=== PATIENT | male | born 1950 | race Caucasian/White ===

== ENCOUNTER 2019-10-08 16:15 | Emergency (ER) | payer MEDICARE, OTHER ==
[2019-10-08] MEDS ORDERED: ONDANSETRON 4 MG/2 ML VIAL IVP STA (17:04)
[2019-10-08] MEDS ORDERED: KETOROLAC 30 MG/ML VIAL IVP STA (17:04)
[2019-10-08] MEDS ORDERED: HYDROmorphone 1 MG/ML CARPUJECT IVP STA (17:04)
--- NOTE | 2019-10-08 17:05 | ED Physician Documentation ---
PD HPI ABD PAIN - Stated complaint Stated Complaint: LOWER BACK PX, NAUSEA - Chief complaint Chief Complaint: Back Pain - History obtained from History obtained from: Patient (69-year-old gentleman with history of renal colic albeit remote, not in about 20 years presents with severe right flank pain waxing and waning since last night. No hematuria but did note a little bit of stinging with urination. Very nauseous but has not vomited. He has never needed any of his kidney stones intervened upon.) Review of Systems Constitutional: reports: Reviewed and negative Cardiac: reports: Reviewed and negative Respiratory: reports: Reviewed and negative PD PAST MEDICAL HISTORY - Past Medical History Past Medical History: Yes Cardiovascular: Hypertension, High cholesterol, Murmur Respiratory: None Neuro: None Endocrine/Autoimmune: None GI: Other : Kidney stones HEENT: Chronic vision loss Psych: None Derm: None Other Past Medical History: IBS. bladder tumor with resection - Past Surgical History Ortho: Shoulder arthroplasty HEENT: Tonsil/Adenoidectomy - Present Medications Home Medications: Ambulatory Orders Medication Instructions Recorded Confirmed Oxycodone HCl/Acetaminophen 1 - 2 each PO Q6H PRN #14 tablet 10/08/19 [Percocet 5-325 mg Tablet] - Allergies Allergies/Adverse Reactions: Allergies Allergy/AdvReac Type Severity Reaction Status Date / Time No Known Drug Allergies Allergy Verified 10/08/19 16:25 - Social History Does the pt smoke?: No Smoking Status: Former smoker Does the pt drink ETOH?: Yes Does the pt have substance abuse?: No - Immunizations Immunizations are current?: Yes - POLST Patient has POLST: No PD ED PE NORMAL - Vitals Vital signs reviewed: Yes - General General: Alert and oriented X 3, No acute distress - Abdomen Abdomen: Normal bowel sounds, Soft, Non tender - Back Back: No CVA TTP - Derm Derm: Normal color, Warm and dry - Extremities Extremities: No edema, No calf tenderness / cord - Neuro Neuro: Alert and oriented X 3, Normal speech Results - Vitals Vitals: Vital Signs - 24 hr 10/08/19 10/08/19 16:26 17:04 Temperature 36.8 C Heart Rate 74 75 Respiratory 18 18 Rate Blood Pressure 176/84 H 178/96 H O2 Saturation 97 96 Oxygen O2 Source Room air - Labs Labs: Laboratory Tests 10/08/19 10/08/19 10/08/19 17:00 17:15 17:15 WBC 8.3 RBC 4.84 Hgb 15.9 Hct 46.6 MCV 96.3 H MCH 32.9 H MCHC 34.1 RDW 13.4 Plt Count 121 L MPV 11.2 Neut # (Auto) 6.2 Lymph # (Auto) 1.1 L Shannon # (Auto) 0.8 Eos # (Auto) 0.1 Baso # (Auto) 0.0 Absolute Nucleated RBC 0.00 Nucleated RBC % 0.0 Sodium 137 Potassium 3.8 Chloride 105 Carbon Dioxide 18 L Anion Gap 14.0 H BUN 25 H Creatinine 1.7 H Estimated GFR (MDRD) 40 L Glucose 126 H Calcium 9.3 Urine Color YELLOW Urine Clarity CLEAR Urine pH 5.0 Ur Specific [place] >=1.030 H Urine Protein NEGATIVE Urine Glucose (UA) NEGATIVE Urine Ketones 15 H Urine Occult Blood NEGATIVE Urine Nitrite NEGATIVE Urine Bilirubin NEGATIVE Urine Urobilinogen 0.2 (NORMAL) Ur Leukocyte Esterase NEGATIVE Ur Microscopic Review NOT INDICATED Urine Culture Comments NOT INDICATED - Rads (name of study) CT kub Radiology: EMP read contemporaneously PD MEDICAL DECISION MAKING - ED course ED course: 69-year-old gentleman with pain consistent with renal colic and found to have 2 mm distal ureteral stone on CT. Also a nephrolith which was discussed with him. Feeling much better and almost pain-free after pain medications. Departure - Departure Disposition: 01 Home, Self Care Clinical Impression: Renal colic on right side Condition: Good Record reviewed to determine appropriate education?: Yes Instructions: ED Stone Renal W Colic Prescriptions: Oxycodone HCl/Acetaminophen [Percocet 5-325 mg Tablet] 1 - 2 each PO Q6H PRN #14 tablet PRN Reason: pain Comments: Imaging today showed a 2 mm distal ureteral stone on the right side, that should come out without an issue within days I would assume. If you are able to catch it in the urine strainer, take it to your doctor for analysis. Return for new or worsening symptoms. As discussed you have a larger stone which we hope will never bother you in your right kidney but be aware it is there.
[2019-10-08 17:20] LABS: BILIRUBIN,URINE NEGATIVE (NEGATIVE); GLUCOSE, URINE (UA) NEGATIVE (NEGATIVE); KETONES,URINE (UA) 15 mg/dL (NEGATIVE); LEUKOCYTE ESTERASE, URINE NEGATIVE (NEGATIVE); NITRITE,URINE NEGATIVE (NEGATIVE); OCCULT BLOOD,URINE NEGATIVE (NEGATIVE); PROTEIN,URINE NEGATIVE (NEGATIVE); UROBILINOGEN,URINE 0.2 (NORMAL) E.U./dL (NORMAL)
[2019-10-08 17:26] LABS: BASOPHILS % (AUTO) 0.5 %; EOSINOPHILS # (AUTO) 0.1 10^3/uL (0.0-0.7); EOSINOPHILS % (AUTO) 0.8 %; HGB - HEMOGLOBIN 15.9 g/dL (14.0-18.0); LYMPHOCYTES # (AUTO) 1.1 10^3/uL (1.5-3.5); LYMPHOCYTES % (AUTO) 13.6 %; MEAN CORPUSCULAR HEMOGLOBIN 32.9 pg (27.0-31.0); MEAN CORPUSCULAR HGB CONC 34.1 g/dL (32.0-36.0); MEAN CORPUSCULAR VOLUME 96.3 fL (80.0-94.0); MEAN PLATELET VOLUME 11.2 fL (7.4-11.4); MONOCYTES # (AUTO) 0.8 10^3/uL (0.0-1.0); MONOCYTES % (AUTO) 9.6 %; NEUTROPHILS # (AUTO) 6.2 10^3/uL (1.5-6.6); PLT - PLATELET COUNT 121 10^3/uL (130-450); RED BLOOD COUNT 4.84 10^6/uL (4.70-6.10); RED CELL DISTRIBUTION WIDTH 13.4 % (12.0-15.0); WHITE BLOOD COUNT 8.3 x10^3/uL (4.8-10.8)
[2019-10-08 17:29] LABS: CLARITY,URINE CLEAR (CLEAR)
[2019-10-08 17:31] LABS: CALCIUM 9.3 mg/dL (8.5-10.3); CREATININE 1.7 mg/dL (0.6-1.2)
--- NOTE | 2019-10-08 18:04 | CT Report ---
Reason: R flank pain Procedure Date: 10/08/2019 Accession Number: [id number] / [id number] Procedure: CT - Abdomen/Pelvis WO CPT Code: Final Report FULL RESULT: EXAM: CT ABDOMEN AND PELVIS (CT KUB) EXAM DATE: 10/08/2019 05:30 PM. CLINICAL HISTORY: Right flank pain. COMPARISONS: None. TECHNIQUE: Routine axial helical CT imaging was performed through the abdomen and pelvis without IV contrast. Reconstructions: Coronal and sagittal. In accordance with CT protocol optimization, one or more of the following dose reduction techniques were utilized for this exam: automated exposure control, adjustment of mA and/or KV based on patient size, or use of iterative reconstructive technique. FINDINGS: Lung Bases: Unremarkable. Right Kidney/Ureter: There is a 2 mm stone in the distal right ureter on series 3 image 148. There is mild hydronephrosis of the right kidney. There is a nonobstructing ovoid stone in the anterior right kidney measuring 12 x 7 mm. There is a fluid density cortical cyst in the anterior midpole of the right kidney. Left Kidney/Ureter: No stones, hydronephrosis, or hydroureter. No perinephric fat stranding. Other Solid Organs: The liver parenchyma is low in density consistent with steatosis. There is focal fatty sparing adjacent to the gallbladder. The spleen, pancreas, adrenal glands appear unremarkable. Gallbladder/Bile Ducts: Unremarkable. Peritoneal Cavity: No free fluid, free air or evelyn adenopathy. Bowel is grossly unremarkable. Pelvic Organs: There is a fat-containing right inguinal hernia. The urinary bladder is empty. Vasculature: Unremarkable. Other: None. IMPRESSION: 1. 2 mm stone in the distal right ureter with mild right hydronephrosis. 2. 12 mm nonobstructing right kidney stone. 3. Steatosis of the liver. 4. Small fat-containing right inguinal hernia. 5. Simple cyst right kidney. No imaging follow-up recommended. [facility]
[2019-10-08] MEDS ORDERED: oxyCODONE/ACET 5/325 Prepack 4 PO STA (18:37)
[2019-10-08 18:50] VITALS: BP 149/87
== END 2019-10-08 18:52 | disposition home or self-care (01) ==
LOC: ED 16:15
DX: N13.2 Hydronephrosis with renal and ureteral calculous obstruction (principal); I10 Essential (primary) hypertension; Z87.891 Personal history of nicotine dependence
CPT/HCPCS: 36415; 74176; 80048; 81003; 85025; 96374; 99284; J1170; 81001; 87086

== ENCOUNTER 2022-12-24 18:50 | Outpatient (CLI) | payer MEDICARE | END 2022-12-24 18:51 | disposition EMS.NT | LOC: EMS 18:50 | DX: M54.50 Low back pain, unspecified (principal); N50.812 Left testicular pain ==